=== PATIENT | female | born 1950 | race Caucasian/White ===

== ENCOUNTER 2025-07-23 13:32 | Emergency (ER) | payer MEDICARE, MEDICAID ==
[~2025-07-23] VITALS: Ht 152.4 cm; Wt 64.0 kg
[2025-07-23 13:41] VITALS: TEMP 37
[2025-07-23] MEDS ORDERED: ALBUTEROL (0.083%) 2.5MG/3ML NEB HHN ONE (14:45)
[2025-07-23] MEDS: ALBUTEROL (0.083%) 2.5MG/3ML NEB HHN SCH (14:56)
[2025-07-23 15:01] VITALS: PULSE 63; RESP 17; O2SAT 100
[2025-07-23] MEDS: DEXAMETHASONE 10 MG/ML VIAL IV ONE (15:04)
[2025-07-23 15:17] LABS: BASOPHILS % 0.5 % (0.0-2.0); EOSINOPHILS % 2.1 % (0.0-5.0); HEMATOCRIT. 35.3 % (36.0-48.0); HEMOGLOBIN. 11.9 g/dL (12.0-16.0); LYMPHOCYTES % 28.8 % (20.0-50.0); MEAN PLATELET VOLUME 8.3 fl (7.4-10.4); MONOCYTES % 7.3 % (2.0-8.0); NEUTROPHILS % 61.3 % (40.0-76.0); PLATELET 266 x1000/uL (130-400); RED BLOOD CELL COUNT 4.06 mill/uL (4.2-5.4); RED CELL DISTRIBUTION WIDTH 14.2 % (11.6-14.6)
[2025-07-23 15:31] LABS: CREATININE 0.7 mg/dL (0.6-1.0); UREA NITROGEN BLOOD 15 mg/dL (9-23)
[2025-07-23 15:35] LABS: TROPONIN I HIGH SENSITIVITY < 4 ng/L (3.0-34)
[2025-07-23 16:49] VITALS: BP 127/69; PULSE 78; RESP 19; O2SAT 95
== END 2025-07-23 17:05 | disposition home or self-care (01) ==
LOC: ER 13:32
DX: J45.901 Unspecified asthma with (acute) exacerbation (principal); I10 Essential (primary) hypertension
CPT/HCPCS: 99284; 96374; 71045; 80048; 85025; 85379; 84484; 36415; 94640; J1100; 94664; A4606